=== PATIENT | male | born 1990 | race Caucasian/White ===

== ENCOUNTER 2016-04-23 22:44 | Emergency (ER) | payer MEDICAID ==
[~2016-04-23] VITALS: Ht 175.3 cm; Wt 91.8 kg
[2016-04-24] MEDS ORDERED: IBUPROFEN 600 MG TABLET PO ONE (00:30)
[2016-04-24 01:44] VITALS: BP 125/67
== END 2016-04-24 01:52 | disposition home or self-care (01) ==
LOC: EMS 22:47
DX: S86.012A Strain of left Achilles tendon, initial encounter (principal); X58.XXXA Exposure to other specified factors, initial encounter; Y93.67 Activity, basketball; Y92.89 Other specified places as the place of occurrence of the external cause; Y99.8 Other external cause status
CPT/HCPCS: 29515; 99284

== ENCOUNTER 2016-05-20 13:51 | Emergency (ER) | payer MEDICAID ==
[~2016-05-20] VITALS: Ht 175.3 cm; Wt 92.7 kg
[2016-05-20 14:41] VITALS: BP 125/79
== END 2016-05-20 14:53 | disposition home or self-care (01) ==
LOC: EMS 13:53
DX: Z48.02 Encounter for removal of sutures (principal)
CPT/HCPCS: 99281

== ENCOUNTER 2017-11-23 18:20 | Emergency (ER) | payer MEDICAID ==
[~2017-11-23] VITALS: Ht 175.3 cm; Wt 95.5 kg
[2017-11-23 18:23] VITALS: BP 142/77
== END 2017-11-23 18:55 | disposition left against medical advice (07) ==
LOC: EMS 18:20
DX: S01.511A Laceration without foreign body of lip, initial encounter (principal); W21.05XA Struck by basketball, initial encounter; Y93.67 Activity, basketball; Y92.89 Other specified places as the place of occurrence of the external cause; Y99.8 Other external cause status